=== PATIENT | male | born 1955 | race Caucasian/White ===

== ENCOUNTER 2017-09-18 21:27 | Emergency (ER) | payer OTHER ==
[2017-09-18 21:34] VITALS: BP 172/69; PULSE 66; BMI 29.0
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
[2017-09-19] MEDS ORDERED: BACITRACIN 15 GM TUBE TOPICAL OINTMENT TP SCH (10:00)
== END 2017-09-18 23:20 | disposition home or self-care (01) ==
LOC: JER 21:27
DX: S50.819A Abrasion of unspecified forearm, initial encounter (principal); Y04.2XXA Assault by strike against or bumped into by another person, initial encounter; Y93.89 Activity, other specified; Y92.159 Unspecified place in reform school as the place of occurrence of the external cause; F79 Unspecified intellectual disabilities
CPT/HCPCS: 99281-25

== ENCOUNTER 2018-08-20 13:30 | Emergency (ER) | payer OTHER ==
[2018-08-20 13:48] VITALS: BP 132/61; PULSE 70; TEMP 101.8; BMI 32.8
[2018-08-20] MEDS ORDERED: ACETAMINOPHEN 1000 MG/100 ML VIAL (NON FORMULARY) IVPB ONE (13:56)
[2018-08-20] MEDS ORDERED: SODIUM CHLORIDE 0.9% 1000 ML INFUS.BAG IV ONE (13:56)
--- NOTE | 2018-08-20 14:04 | PDOC ---
Attending Attestation - HPI HPI: 08/20/18 14:41 The patient is a 63 year old male, with a significant past medical history of MR , testosterone deficiency who presents to the emergency department from [facility] facility accompanied by aide for fever and diarrhea today. The aide states he is otherwise at baseline. The aide states there are multiple people in the house with diarrhea. Allergies: NKDA PMD: Dr. Valerie Rowell - Physicial Exam PE: 08/20/18 14:41 Vitals: Triage vital signs reviewed General Appearance: No acute distress, well nourished, well developed Head: Atraumatic Eyes: Pupils equal reactive round, extraocular movement intact Neck: Supple; No nuchal rigidity Chest Wall: Nontender Cardiac: Regular rate and rhythm, no murmurs, no rubs, no gallops Lungs: Clear to auscultation bilateral, good air movement bilaterally Abdomen: Soft, nondistended, normal bowel sounds, nontender to palpation Extremities: Full range of motion to all extremities, no cyanosis, clubbing, or edema Skin: Warm and dry, no rashes or lesions, no rash, no petechiae Neuro: Nonverbal at baseline. Cranial Nerves 2-12 grossly intact, Strength intact to all extremities, Sensation intact to all extremities <Genie Yun - Last Filed: 08/20/18 14:41> - Resident Resident Name: Shant Whitten - ED Attending Attestation I have performed the following: I have examined & evaluated the patient, The case was reviewed & discussed with the resident, I agree w/resident's findings & plan, Exceptions are as noted - Medical Decision Making 08/21/18 12:54 63 years old past medical history significant for MR testosterone deficiency presents to the ED with fever and 1 episode of diarrhea today Per the aide multiple people are sick at the institution with similar illnesses and patient is at his baseline mental status Flu negative, laboratory analysis within normal limits Findings discussed with insurance legal assistant need for follow-up and strict return instructions discussed. <Kirit Santiago - Last Filed: 08/21/18 13:19> Heart Score/ECG Review - ECG Impressions Comment:: 08/21/18 13:18 EKG performed at 1421 demonstrates normal sinus rhythm no ST elevations or T- wave inversions Interpreted by me. <Kirit Santiago - Last Filed: 08/21/18 13:19> Attestations - Attestations 08/20/18 14:42 Documentation prepared by Genie Yun, acting as medical chemist for Kirit Santiago MD <Genie Yun - Last Filed: 08/20/18 14:41>
--- NOTE | 2018-08-20 14:17 | PDOC ---
History of Present Illness - General Chief Complaint: SIRS, Suspected/Possible Stated Complaint: SENT BY PCP Time Seen by Provider: 08/20/18 13:56 History Source: Care Provider Exam Limitations: Other (developmental disability) - History of Present Illness Initial Comments: Patient is a 63 y/o M from [facility] w/ PMHx developmental disability, likely HTN, BPH vs urinary retention based on medication list, brought in for fever and 1 episode each of urinary and fecal incontinence. Per aide at bedside , patient is normally continent and able to answer yes/no questions. Was entirely non-verbal during encounter. Febrile to 101.8, vitals otherwise stable. No other complaints ascertained. 08/20/18 14:12 Past History - Travel Traveled outside of the country in the last 30 days: No Close contact w/someone who was outside of country & ill: No - Past Medical History Allergies/Adverse Reactions: Allergies Allergy/AdvReac Type Severity Reaction Status Date / Time No Known Allergies Allergy Verified 08/20/18 14:55 Home Medications: Ambulatory Orders Multivitamin 1 mg PO AM 07/30/11 Risperidone 0.5 mg PO HS 07/30/11 Benzonatate 100 mg PO capsule 11/25/14 Chlorhexidine Gluconate 1 each TP 11/25/14 Clotrimazole [Antifungal] 15 gm TP 11/25/14 Diphenhydram 11/25/14 Gemfibrozil 600 mg PO tablet 11/25/14 Guaifenesin/D-Methorphan Hb [Tussin Dm Clear Liquid] 118 ml PO 11/25/14 Hydrochlorottb 11/25/14 Miconazole Nitrate [Zeasorb-Af] 70 gm TP 11/25/14 Multivit,Tx with Iron,Minerals [Thera-M] 1 each PO tablet 11/25/14 Oxybenzone/Padimate O [Sunscreen Spf8 Lotion] 120 ml TP 11/25/14 Trifluoperazine HCl 1 mg PO tablet 11/25/14 Anemia: No Asthma: No Cancer: No Cardiac Disorders: No CVA: No COPD: No CHF: No Dementia: Yes (hx severe mr) Diabetes: No GI Disorders: No Disorders: No HTN: No Hypercholesterolemia: No Liver Disease: No Seizures: No Thyroid Disease: No - Surgical History Abdominal Surgery: No Appendectomy: No Cardiac Surgery: No Cholecystectomy: No Lung Surgery: No Neurologic Surgery: No Orthopedic Surgery: No - Suicide/Smoking/Psychosocial Hx Smoking History: Never smoked Have you smoked in the past 12 months: No Information on smoking cessation initiated: No Hx Alcohol Use: No Drug/Substance Use Hx: No Substance Use Type: None Hx Substance Use Treatment: No Review of Systems - Review of Systems Comments:: Unable to obtain. 08/20/18 14:15 *Physical Exam - Vital Signs Last Vital Signs Temp Pulse Resp BP Pulse Ox 101.8 F H 70 20 132/61 96 08/20/18 13:42 08/20/18 13:42 08/20/18 13:42 08/20/18 13:42 08/20/18 13:42 - Physical Exam Comments: Gen: non toxic-appearing man with observable developmental disabilities, non- verbal (may represent acute mental status change) HEENT: NC/AT, PERRLA Neck: supple, non-tender, no LAD, no JVD CV: RRR no m/r/g Resp: CTA b/l Abd: +bs, soft, NT, ND Ext: 2+ pulses, wwp, no edema, no calf tenderness Neuro: limited exam, no motor deficits, ambulating w/ assistance at baseline 08/20/18 14:15 Moderate Sedation - Procedure Monitoring Vital Signs: Procedure Monitoring Vital Signs Temperature 101.8 F H 08/20/18 13:42 Pulse Rate 70 08/20/18 13:42 Respiratory Rate 20 08/20/18 13:42 Blood Pressure 132/61 08/20/18 13:42 O2 Sat by Pulse Oximetry (%) 96 08/20/18 13:42 ED Treatment Course - LABORATORY CBC & Chemistry Diagram: 08/20/18 14:00 08/20/18 14:00 Medical Decision Making - Medical Decision Making Patient is unable to provide clarifying information regarding febrile illness. Does not appear acutely ill. Nevertheless will obtain full sepsis workup and provide Ofirmev for fever and NS IVF. 08/20/18 14:17 CBC, VBG unremarkable, lactate negative. 08/20/18 15:15 Flu swab negative. Coags wnl. 08/20/18 15:47 Negative troponin. Mild hyponatremia. Hypokalemia to 3.1, will treat w/ KCl. Elevated total bili to 1.5 08/20/18 16:05 Will discharge to [facility] w/ viral illness, call custodial, recommend Motrin/ Tylenol, provide copies of labs. 08/20/18 16:13 *DC/Admit/Observation/Transfer Diagnosis at time of Disposition: Viral illness - Discharge Dispostion Disposition: [facility] Condition at time of disposition: Stable - Referrals - Patient Instructions Printed Discharge Instructions: DI for Fever (Symptom) -- Adult, DI for Viral Gastroenteritis -- Adult Additional Instructions: You were evaluated for fever and GI complaints. Your studies were reassuring of nothing more significant than a viral illness. Please take Motrin or Tylenol as needed for fever. Your lab results will provided to you. Please follow up with your primary medical doctor. If you experience worsening fever, chest pain, shortness of breath, loss of consciousness, or any other new or concerning symptom, please return to the Emergency Department. - Post Discharge Activity
[2018-08-20] MEDS ORDERED: ACETAMINOPHEN INJECTION 100 ML IVPB ONE (14:39)
[2018-08-20 15:00] LABS: BASO % 0.4 % (0-2.0); EOS % 0.2 % (0-4.5); HEMATOCRIT 31.7 % (35.4-49); HEMOGLOBIN 11.6 GM/dL (11.7-16.9); LYMPH % 12.5 % (8-40); MCHC 36.6 g/dl (32.0-35.9); MEAN CELL VOLUME 92.8 fl (80-96); MONO % 6.5 % (3.8-10.2); NEUT % 80.4 % (42.8-82.8); PLATELET COUNT 181 K/MM3 (134-434); RBC 3.42 M/mm3 (4.00-5.60); RDW 13.9 % (11.9-15.9); WHITE BLOOD COUNT 6.1 K/mm3 (4.0-10.0)
[2018-08-20 15:03] LABS: VENOUS PC02 41.7 mmHg (38-52); VENOUS PH 7.42 (7.32-7.42); VENOUS PO2 49.8 mmHg (28-48)
[2018-08-20 15:16] LABS: INR 1.02 (0.83-1.09)
[2018-08-20 15:19] LABS: ACTIVATED PTT 30.1 SECONDS (25.2-36.5)
[2018-08-20 15:57] LABS: ALBUMIN 3.8 g/dl (3.4-5.0); ALK PHOS 91 U/L (45-117); ANION GAP 10 MMOL/L (8-16); BILIRUBIN,TOTAL 1.5 mg/dL (0.2-1); BLOOD UREA NITROGEN 18 mg/dL (7-18); CALCIUM 8.5 mg/dL (8.5-10.1); CHLORIDE 98 mmol/L (98-107); CO2 26 mmol/L (21-32); CREATININE 0.8 mg/dL (0.55-1.3); GLUCOSE,RANDOM 115 mg/dL (74-106); POTASSIUM 3.1 mmol/L (3.5-5.1); SGOT/AST 25 U/L (15-37); SGPT/ALT 47 U/L (13-61); SODIUM 134 mmol/L (136-145)
[2018-08-20] MEDS ORDERED: POTASSIUM CHLORIDE TABS 20 MEQ TABLET.ER (FP) PO ONE (16:03)
[2018-08-20] MEDS ORDERED: POTASSIUM CHLORIDE ORAL LIQUID 20 MEQ/15 ML ONE (16:17)
--- NOTE | 2018-08-20 16:42 | EKG ---
Test Reason : Blood Pressure : / mmHG Vent. Rate : 073 BPM Atrial Rate : 073 BPM P-R Int : 160 ms QRS Dur : 088 ms QT Int : 404 ms P-R-T Axes : 036 -04 025 degrees QTc Int : 445 ms NORMAL SINUS RHYTHM POSSIBLE LEFT ATRIAL ENLARGEMENT LEFT VENTRICULAR HYPERTROPHY ABNORMAL ECG NO PREVIOUS ECGS AVAILABLE Confirmed by CRYSTAL MEDINA, LORA ([id number]) on 08/20/2018 4:41:52 PM Referred By: Confirmed By:LORA ROJAS MD
== END 2018-08-20 16:54 | disposition home or self-care (01) ==
LOC: JER 13:30
PROC: 3E033NZ Introduction of Analgesics, Hypnotics, Sedatives into Peripheral Vein, Percutaneous Approach (ICD-10-PCS; principal; 2018-08-20)
DX: B34.9 Viral infection, unspecified (principal); F72 Severe intellectual disabilities; E87.6 Hypokalemia
CPT/HCPCS: 36415; 80053; 82803; 83605; 84484; 85025; 85610; 85730; 87040; 87804; 93005; 93010; 99283-25; J0131; J7030

== ENCOUNTER 2019-05-11 10:51 | Emergency (ER) | payer OTHER ==
--- NOTE | 2019-05-11 11:07 | PDOC ---
History of Present Illness - General Stated Complaint: FALL Time Seen by Provider: 05/11/19 11:04 - History of Present Illness Initial Comments: 05/11/19 11:04 Mr. Schilling is a 64 yo male w/ pmh of developmental disability (non-verbal) and testosterone deficiency who presents for evaluation after fall earlier today. Patient accompanied by DSP councelor who reports patient is resident at [facility] and was walking in for check-up at doctor's office today when he became excited and tripped over his own feet when walking into the door. Fall happened 20 minutes prior to presentation. DSP has known him for 1 year and is able to communicate; assisting history. Patient otherwise at baseline and has no complaints at this time. Past History - Past Medical History Allergies/Adverse Reactions: Allergies Allergy/AdvReac Type Severity Reaction Status Date / Time No Known Allergies Allergy Verified 08/20/18 14:55 Home Medications: Ambulatory Orders Benzonatate 100 mg PO DAILY capsule 11/25/14 Chlorhexidine Gluconate 1 each TP DAILY 11/25/14 Clotrimazole [Antifungal] 15 gm TP DAILY 11/25/14 Gemfibrozil 600 mg PO DAILY tablet 11/25/14 Guaifenesin/D-Methorphan Hb [Tussin Dm Clear Liquid] 118 ml PO DAILY 11/25/14 Miconazole Nitrate [Zeasorb-Af] 70 gm TP DAILY 11/25/14 Multivit,Tx with Iron,Minerals [Thera-M] 1 each PO DAILY tablet 11/25/14 Oxybenzone/Padimate O [Sunscreen Spf8 Lotion] 120 ml TP DAILY 11/25/14 Trifluoperazine HCl 1 mg PO DAILY tablet 11/25/14 Acetaminophen [Tylenol 8 Hour] 650 mg PO Q6H PRN #16 tablet.er 08/20/18 Anemia: No Asthma: No Cancer: No Cardiac Disorders: No CVA: No COPD: No CHF: No Dementia: Yes (hx severe mr) Diabetes: No GI Disorders: No Disorders: No HTN: No Hypercholesterolemia: No Liver Disease: No Seizures: No Thyroid Disease: No - Surgical History Abdominal Surgery: No Appendectomy: No Cardiac Surgery: No Cholecystectomy: No Lung Surgery: No Neurologic Surgery: No Orthopedic Surgery: No - Psycho Social/Smoking Cessation Hx Smoking History: Never smoked Have you smoked in the past 12 months: No Hx Alcohol Use: No Drug/Substance Use Hx: No Substance Use Type: None Hx Substance Use Treatment: No Review of Systems - Review of Systems Comments:: 05/11/19 11:05 Unable to obtain further *Physical Exam - Physical Exam Comments: 05/11/19 11:05 GENERAL: Awake, alert, and oriented to baseline, in no acute distress HEAD: EYES: PERRLA, EOMI, sclera anicteric, conjunctiva clear ENT: Auricles normal inspection, hearing grossly normal, nares patent, oropharynx clear without exudates. Moist mucosa NECK: Normal ROM, supple, no lymphadenopathy, JVD, or masses LUNGS: No distress, speaks full sentences, clear to auscultation bilaterally HEART: Regular rate and rhythm, normal S1 and S2, no murmurs, rubs or gallops, peripheral pulses normal and equal bilaterally. ABDOMEN: Soft, nontender, normoactive bowel sounds. No guarding, no rebound. No masses EXTREMITIES: Normal inspection, Normal range of motion, no edema. No clubbing or cyanosis. NEUROLOGICAL: +Unable to assess further SKIN: Warm, Dry, normal turgor, no rashes or lesions noted. Medical Decision Making - Medical Decision Making 05/11/19 11:25 Patient is a 64 yo male w/ pmh as described who presents s/p fall. Patient evaluated with Head and C-spine and wound irrigated and closed with steri- strips. Tetanus status updated as last date unknown. 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 Also defect of right lateral arch of C1 c/w fracture of indeterminate age. Discussed patient with Neurosurgeon Dr. Jackson who reviewed case and images and believes fracture to be old - no intervention required at this time. Patient believed to be at baseline per staff. Discharging to home. Discharge - Discharge Information Problems reviewed: Yes Clinical Impression/Diagnosis: Fall Qualifiers: Encounter type: initial encounter Qualified Code(s): W19.XXXA - Unspecified fall, initial encounter Disposition: HOME - Follow up/Referral Referrals: Valerie Rowell MD [Primary Care Provider] - - Patient Discharge Instructions Patient Printed Discharge Instructions: DI for Laceration Repair Steri-Strips Additional Instructions: Calin was evaluated today in the ER following his fall. We cleaned and closed his wound and performed CT scans. Scans revealed a small C1 fracture which we discussed with neurosurgery and is thought to be old with no intervention required at this time. Please follow-up with primary care provider for further evaluation. Return to ER if any fever, chills, pain, or other concerning symptoms. - Post Discharge Activity
[2019-05-11 11:22] VITALS: BMI 26.4
[2019-05-11] MEDS ORDERED: DIPHTH,PERTUSS(ACELL),TET 0.5 ML DISP.SYRIN IM ONE ×2 (12:41→13:12)
[2019-05-11] MEDS ORDERED: BACITRACIN 15 GM TUBE TOPICAL OINTMENT TP ONE (12:56)
[2019-05-11] MEDS ORDERED: BACITRACIN 0.9 GM PACKET ONE (13:00)
[2019-05-11] MEDS ORDERED: BACITRACIN 15 GM TUBE TOPICAL OINTMENT ONE (13:02)
--- NOTE | 2019-05-11 13:56 | PDOC ---
Attending Attestation - Resident Resident Name: Joseph Martin - ED Attending Attestation I have performed the following: I have examined & evaluated the patient, The case was reviewed & discussed with the resident, I agree w/resident's findings & plan - HPI HPI: 05/11/19 13:53 64y/o M developmental delay, nonverbal at baseline but ambulatory, presents with aide s/p fall. tripped on round while walking fast, struck forehead, no LOC. ambulatory and at baseline behavior since then per aide. - Physicial Exam PE: 05/11/19 13:54 vss alert, following commands, nonverbal at baseline forehead abrasion/superficial laceration from c-spine without clear step-off or ttp s1s2 rrr, ctab, abd benign no extremity trauma - Medical Decision Making 05/11/19 13:55 64y/o M DD with mechanical fall, forehead injury. neuro intact, small forehead abrasion. ct head/cspine tetanus updated 05/11/19 14:[address] presentation not clinically consistent with acute injury. Images reviewed with fareed Carpio pathology transcriptionist, and appears chronic. Pt still at baseline, will d/c with results. aide at bedside.
[2019-05-11 14:45] VITALS: BP 156/65; PULSE 72; TEMP 98.6
== END 2019-05-11 14:45 | disposition home or self-care (01) ==
LOC: JER 10:51
PROC: 3E0234Z Introduction of Serum, Toxoid and Vaccine into Muscle, Percutaneous Approach (ICD-10-PCS; principal; 2019-05-11)
PROC: 3E0234Z Introduction of Serum, Toxoid and Vaccine into Muscle, Percutaneous Approach (ICD-10-PCS; 2019-05-11)
DX: S01.81XA Laceration without foreign body of other part of head, initial encounter (principal); W01.0XXA Fall on same level from slipping, tripping and stumbling without subsequent striking against object, initial encounter; Y93.01 Activity, walking, marching and hiking; Y92.531 Health care provider office as the place of occurrence of the external cause; Y99.8 Other external cause status; R62.50 Unspecified lack of expected normal physiological development in childhood; F72 Severe intellectual disabilities; E29.1 Testicular hypofunction
CPT/HCPCS: 70450-TC; 72125-TC; 90471; 90715; 99282-25

== ENCOUNTER 2022-09-22 18:54 | Emergency (ER) | payer OTHER ==
[2022-09-22 19:01] VITALS: BP 167/77; PULSE 56; RESP 18; TEMP 97; BMI 53.8
== END 2022-09-22 22:16 | disposition home or self-care (01) ==
LOC: JER 18:54
DX: R00.1 Bradycardia, unspecified (principal); W18.30XA Fall on same level, unspecified, initial encounter
CPT/HCPCS: 70450-TC; 72125-TC; 93005; 93010; 99284-25